=== PATIENT | male | born 1975 | race Caucasian/White ===

== ENCOUNTER 2016-05-24 12:48 | Inpatient (IN) | payer SELFPAY ==
[2016-05-24] MEDS ORDERED: predniSONE 20 MG TAB PO ONE ×2 (13:05→14:30)
--- NOTE | 2016-05-24 13:16 | EDPHY ---
HPI/HX/ROS/PE/MDM Narrative: CHIEF COMPLAINT: Sent here by PCP, Admit for HIV. HPI: The patient is a 41 year old male, sent here by his PCP with positive HIV test. According to the patient's record, [facility] went [facility] and paid for an HIV antibody test, that returned positive. His last test was in 2003 and was negative at that time. The patient was hypoxic at in clinic at 71%. The patient has been ill for 6 weeks. He has lost up to 10Ibs. Over the past few days the patient has had productive cough with light green sputum. He reports intermittent fevers as well as headaches, but denies fever or visual changes. He denies nauseas, vomiting, abdominal pain. No hematosis, hematuria, or bloody stools. The patient was sent here to be admitted to have CT chest and to start him on IV Bactrim. 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 REVIEW OF SYSTEMS: Aside from elements discussed in the HPI, a comprehensive 10-point review of systems was reviewed and is negative. PMH: I reviewed the patient's medical records from his visit with his PCP, Dr. Mcclure today. HIV positive. SOCIAL HISTORY: Former tobacco use. PHYSICAL EXAM: General: Patient is alert, in mild respiratory distress on oxymask. Mildly cachectic. ENT: Eyes are normal to inspection. ENT inspection normal. Neck: Normal inspection. Full range of motion. Respiratory: Mild respiratory distress. Bilateral crackles noted. Cardiovascular: Regular rate and rhythm. Strong peripheral pulses. Abdomen: The abdomen is nontender to palpation. There are no peritoneal signs. There are normal bowel sounds. Back: Normal to inspection. No tenderness to palpation. Skin: Normal color. No rash. Warm and dry. Extremities: Normal appearance. Full range of motion. Neuro: Oriented x3. Normal motor function. Normal sensory function. ED Course: The patient is on an oxidizer mask, O2 saturations are in the 90s. I ordered chest x-ray, CT chest, IV Bactrim, and Prednisone per Dr. Mcclure's request. 1340: Dr. Cross accepts the patient for admission. Imaging: Study: X-ray of the chest was obtained. Results: Diffuse pneumonia consistent with pneumocystis. Images were interpreted by the radiologist, Dr. Murry. I viewed the images myself on the PACS system. MDM: This patient meets guidelines for Severe Sepsis given lab abnormalities and hypoxia. His lactate is <2 and he is not hypotensive, so he does not currently have septic shock. Our guidelines technically require IV broad spectrum antibiotic empirically, however, given clinical scenario and request by ID, I have given IV Bactrim only. - Data Points Laboratory Results: Laboratory Results 05/24/16 13:29 05/24/16 13:29 05/24/16 05/24/16 05/24/16 13: 13: 13:29 WBC 8.98 10^3/uL 10^3/uL (3.80-9.50) RBC 4.32 10^6/uL L 10^6/uL (4.40-6.38) Hgb 13.0 g/dL L g/dL (13.7-17.5) Hct 37.7 % L % (40.0-51.0) MCV 87.3 fL fL (81.5-99.8) MCH 30.1 pg pg (27.9-34.1) MCHC 34.5 g/dL g/dL (32.4-36.7) RDW 12.8 % % (11.5-15.2) Plt Count 571 10^3/uL H 10^3/uL (150-400) MPV 8.6 fL L fL (8.7-11.7) Neut % (Auto) 86.6 % H % (39.3-74.2) Lymph % (Auto) 8.1 % L % (15.0-45.0) [place] % (Auto) 4.0 % L % (4.5-13.0) Eos % (Auto) 0.1 % L % (0.6-7.6) Baso % (Auto) 0.2 % L % (0.3-1.7) Nucleat RBC Rel Count 0.2 % % (0.0-0.2) Absolute Neuts (auto) 7.77 10^3/uL H 10^3/uL (1.70-6.50) Absolute Lymphs (auto) 0.73 10^3/uL L 10^3/uL (1.00-3.00) Absolute Monos (auto) 0.36 10^3/uL 10^3/uL (0.30-0.80) Absolute Eos (auto) 0.01 10^3/uL L 10^3/uL (0.03-0.40) Absolute Basos (auto) 0.02 10^3/uL 10^3/uL (0.02-0.10) Absolute Nucleated RBC 0.02 10^3/uL H 10^3/uL (0-0.01) Immature Gran % 1.0 % % (0.0-1.1) Immature Gran # 0.09 10^3/uL 10^3/uL (0.00-0.10) VBG Lactic Acid 1.6 mmol/L mmol/L (0.7-2.1) Sodium 127 mEq/L L mEq/L (134-144) Potassium 4.7 mEq/L mEq/L (3.5-5.2) Chloride 95 mEq/L L mEq/L (97-110) Carbon Dioxide 24 mEq/l mEq/l (22-31) Anion Gap 8 mEq/L mEq/L (8-16) BUN 13 mg/dL mg/dL (7-23) Creatinine 0.9 mg/dL mg/dL (0.7-1.3) Estimated GFR > 60 Glucose 146 mg/dL H mg/dL (70-100) Calcium 8.2 mg/dL L mg/dL (8.5-10.4) Troponin I < 0.012 ng/mL ng/mL (0-0.034) NT-Pro-B Natriuret Pep 224 pg/mL H pg/mL (0-125) Medications Given: Discontinued Medications Prednisone (Prednisone) 20 mg PO EDNOW ONE Stop: 05/24/16 13:06 Last Admin: 05/24/16 13:25 Dose: 20 mg Prednisone (Prednisone) 20 mg PO ONCE ONE Stop: 05/24/16 14:31 Last Admin: 05/24/16 14:28 Dose: 20 mg General Time Seen by Provider: 05/24/16 12:57 Initial Vital Signs: Initial Vital Signs Temperature (C) 36.7 C 05/24/16 12:54 Heart Rate 116 H 05/24/16 12:54 Respiratory Rate 26 H 05/24/16 12:54 Blood Pressure 103/64 05/24/16 12:54 O2 Sat (%) 90 L 05/24/16 12:54 O2 Delivery Mode Nasal Cannula O2 (L/minute) 5 Allergies/Adverse Reactions: Penicillins Allergy (Verified 05/24/16 12:53) Home Medications: Medication Instructions Recorded Herbals/Supplements -Info Only 1 ea PO DAILY 05/24/16 Ibuprofen [Motrin (*)] 200 mg PO DAILY PRN 05/24/16 Multivitamins [Multivitamin (*)] 1 each PO DAILY 05/24/16 Pseudoephedrine HCl [Sudafed] 30 mg PO BID PRN 05/24/16 Departure - Departure Disposition: [facility] In[facility] Acute Clinical Impression: HIV (human immunodeficiency virus infection), Hypoxia Condition: Fair Report Scribed for: Jacob Terry Report Scribed by: Luly Deshpande Date of Report: 05/24/16 Time of Report: 13:16
[2016-05-24 13:38] LABS: ABSOLUTE IMMATURE GRANULOCYTES 0.09 10^3/uL (0.00-0.10); ABSOLUTE NRBC COUNT 0.02 10^3/uL (0-0.01); ADD DIFF? NO; ADD MORPH? NO; ADD SCAN? NO; ATYPICAL LYMPHOCYTE FLAG 10 (0-99); FRAGMENT RBC FLAG 0 (0-99); HEMATOCRIT 37.7 % (40.0-51.0); LEFT SHIFT FLG 0 (0-99); LIPEMIA HEMOLYSIS FLAG 90 (0-99); MEAN CELL HEMOGLOBIN 30.1 pg (27.9-34.1); MEAN CELL HEMOGLOBIN CONCENTR. 34.5 g/dL (32.4-36.7); MEAN CELL VOLUME 87.3 fL (81.5-99.8); MEAN PLATELET VOLUME 8.6 fL (8.7-11.7); NRBC-AUTO% 0.2 % (0.0-0.2); PLATELET CLUMPS FLAG 0 (0-99); PLATELET COUNT 571 10^3/uL (150-400); RED BLOOD CELL COUNT 4.32 10^6/uL (4.40-6.38); RED CELL DISTRIBUTION WIDTH 12.8 % (11.5-15.2)
[2016-05-24 13:55] LABS: ANION GAP 8 mEq/L (8-16); CALCIUM 8.2 mg/dL (8.5-10.4); CARBON DIOXIDE 24 mEq/l (22-31); CHLORIDE 95 mEq/L (97-110); CREATININE 0.9 mg/dL (0.7-1.3); GLOMERULAR FILTRATION RATE > 60; GLUCOSE 146 mg/dL (70-100); POTASSIUM 4.7 mEq/L (3.5-5.2); SODIUM 127 mEq/L (134-144)
--- NOTE | 2016-05-24 14:03 | PCMIDPN ---
Assessment/Plan: 1. Probable Pneumocystis pneumonia in patient with new diagnosis of HIV/AIDS: Continue IV Bactrim and Prednisone, but needs 40mg daily for now, and then tapering moving forward. Chest CT pending. Will order induced sputum for PCP stain. Multiple other tests/serologies pending. Other pathogens seem less likely, such as Penicillium marneffei (patient has no skin lesions), Histoplasmosis, TB, but await further evaluation. 2. HIV/aids: T-cell count viral load and multiple other serologic tests and workup for sexually transmitted infections pending. We were out of regular blood culture bottles and AFB but blood culture bottles--it appears that these were done in the emergency department. 3. Miscellaneous: Patient is extremely concerned about finances. Will order social work consult. 05/24/16 14:04 Subjective: Please see my extensive note in [place]. Patient presented to see me today in clinic as a new patient with recent diagnosis of HIV disease. Patient was profoundly hypoxic and referred to the emergency room for evaluation and hospital admission for probable Pneumocystis pneumonia. Objective: Vital Signs Temp Pulse Resp BP Pulse Ox 36.7 C 116 H 26 H 103/64 94 05/24/16 12:54 05/24/16 12:54 05/24/16 12:54 05/24/16 12:54 05/24/16 13:22 ICD10 Worksheet Patient Problems: Problems Problem Status Onset HIV (human immunodeficiency virus infection) Acute Hypoxia Acute
[2016-05-24] MEDS ORDERED: IOPAMIDOL (ISOVUE-300) 100 ML BTL IV ONE (14:06)
[2016-05-24 14:07] LABS: TROPONIN I < 0.012 ng/mL (0-0.034)
[2016-05-24] MEDS: SULFAMETHOX IV SCH ×3 (14:28→23:55)
[2016-05-24] MEDS: D5W IV SCH ×3 (14:28→23:55)
[2016-05-24] MEDS: TMP IV SCH ×3 (14:28→23:55)
[2016-05-24] MEDS ORDERED: ONDANSETRON DISINTEGRATING 4 MG TAB PO PRN (14:34)
[2016-05-24] MEDS ORDERED: ONDANSETRON 4 MG/2 ML VIAL IVP PRN (14:34)
[2016-05-24] MEDS ORDERED: ACETAMINOPHEN 325 MG TAB PO PRN (14:34)
[2016-05-24] MEDS ORDERED: NS 1,000 ML IV SCH (14:45)
--- NOTE | 2016-05-24 15:40 | PDGENHP ---
History and Physical - Chief Complaint Acute shortness of breath - History of Present Illness Primary infectious Disease: Dr. Mcclure HPI: 41-year-old male presenting with acute shortness of breath characterized as difficulty breathing, exacerbated by ambulation, with associated productive cough of green sputum as well as subjective fevers and headaches. Patient reports that his symptoms began approximately 10 days ago and duration has been persistent and progressively worsening thereafter. Does report general malaise beginning approximately 6 weeks ago with a 10 lb weight loss over that time. He reports that her shortness of breath was alleviated by receiving supplemental oxygen at the [facility]. His SpO2 at that time was 71% on room air, improved with 4 L supplemental nasal cannula oxygen. Prior to his onset of symptoms, the patient reports he had otherwise been feeling well. Of note, the patient recently had a positive HIV test and was referred to [facility] from the [facility]. Prior to that, he had not been seeing any medical providers. History Information - Allergies/Home Medication List Allergies/Adverse Reactions: Penicillins Allergy (Verified 05/24/16 12:53) Home Medications: Herbals/Supplements -Info Only 1 ea PO DAILY 05/24/16 [Last Taken Unknown] Ibuprofen [Motrin (*)] 200 mg PO DAILY PRN 05/24/16 [Last Taken 05/24/16] Multivitamins [Multivitamin (*)] 1 each PO DAILY 05/24/16 [Last Taken Unknown] Pseudoephedrine HCl [Sudafed] 30 mg PO BID PRN 05/24/16 [Last Taken 05/24/16] I have personally reviewed and updated: family history, medical history, social history, surgical history - Past Medical History no pertinent PMH - Surgical History Additional surgical history: Nose reconstruction - Family History Additional family history: Brother with scleroderma - Social History Smoking Status: Former smoker (Patient quit smoking 2 months ago) Alcohol Use: Occasionally (Does not drink daily) Drug Use: Other (Has a history of recreational drug use, denies IV drug use) Additional social history: Patient previously lived in [facility], 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, currently resides in [place] and commutes to [place] for work Review of Systems ROS: 10pt was reviewed & negative except for what was stated in HPI & below Constitutional: Reports: malaise, weight loss Respiratory: Reports: cough, shortness of breath Physical Exam Temp Pulse Resp BP Pulse Ox 36.7 C 96 18 102/59 L 95 05/24/16 12:54 05/24/16 14:00 05/24/16 14:00 05/24/16 14:00 05/24/16 14:00 O2 (L/minute) 5 Constitutional: no apparent distress, not in pain, other (Thin appear), No uncomfortable Eyes: PERRL, anicteric sclera, EOMI Ears, Nose, Mouth, Throat: moist mucous membranes, hearing normal, ears appear normal, no oral mucosal ulcers Cardiovascular: regular rate and rhythym, no murmur, rub, or gallop, No edema Respiratory: respiratory distress (With exertion and repositioning), rhonchi ( Diffusely throughout on inspiration), No reduced air movement, No expiratory wheeze, No bronchial breath sounds Gastrointestinal: normoactive bowel sounds, soft, non-tender abdomen, no palpable masses Skin: warm, normal color, no rashes or abrasions, no fluctuance, no induration, No mottled Neurologic: AAOx3, sensation intact bilaterally, No weakness Psychiatric: interacting appropriately, not anxious, not encephalopathic, thought process linear Lymph, Heme, Immunologic: no cervical LAD, no supraclavicular LAD Lab Data & Imaging Review 05/24/16 13:29 05/24/16 13:29 WBC 8.98 10^3/uL (3.80-9.50) 05/24/16 13:29 RBC 4.32 10^6/uL (4.40-6.38) L 05/24/16 13:29 Hgb 13.0 g/dL (13.7-17.5) L 05/24/16 13:29 Hct 37.7 % (40.0-51.0) L 05/24/16 13:29 MCV 87.3 fL (81.5-99.8) 05/24/16 13:29 MCH 30.1 pg (27.9-34.1) 05/24/16 13:29 MCHC 34.5 g/dL (32.4-36.7) 05/24/16 13:29 RDW 12.8 % (11.5-15.2) 05/24/16 13:29 Plt Count 571 10^3/uL (150-400) H 05/24/16 13:29 MPV 8.6 fL (8.7-11.7) L 05/24/16 13:29 Neut % (Auto) 86.6 % (39.3-74.2) H 05/24/16 13:29 Lymph % (Auto) 8.1 % (15.0-45.0) L 05/24/16 13:29 [place] % (Auto) 4.0 % (4.5-13.0) L 05/24/16 13:29 Eos % (Auto) 0.1 % (0.6-7.6) L 05/24/16 13:29 Baso % (Auto) 0.2 % (0.3-1.7) L 05/24/16 13:29 Nucleat RBC Rel Count 0.2 % (0.0-0.2) 05/24/16 13:29 Absolute Neuts (auto) 7.77 10^3/uL (1.70-6.50) H 05/24/16 13:29 Absolute Lymphs (auto) 0.73 10^3/uL (1.00-3.00) L 05/24/16 13:29 Absolute Monos (auto) 0.36 10^3/uL (0.30-0.80) 05/24/16 13:29 Absolute Eos (auto) 0.01 10^3/uL (0.03-0.40) L 05/24/16 13:29 Absolute Basos (auto) 0.02 10^3/uL (0.02-0.10) 05/24/16 13:29 Absolute Nucleated RBC 0.02 10^3/uL (0-0.01) H 05/24/16 13:29 Immature Gran % 1.0 % (0.0-1.1) 05/24/16 13: Immature Gran # 0.09 10^3/uL (0.00-0.10) 05/24/16 13:29 VBG Lactic Acid 1.6 mmol/L (0.7-2.1) 05/24/16 13:29 Sodium 127 mEq/L (134-144) L 05/24/16 13:29 Potassium 4.7 mEq/L (3.5-5.2) 05/24/16 13:29 Chloride 95 mEq/L (97-110) L 05/24/16 13:29 Carbon Dioxide 24 mEq/l (22-31) 05/24/16 13:29 Anion Gap 8 mEq/L (8-16) 05/24/16 13:29 BUN 13 mg/dL (7-23) 05/24/16 13:29 Creatinine 0.9 mg/dL (0.7-1.3) 05/24/16 13:29 Estimated GFR > 60 05/24/16 13:29 Glucose 146 mg/dL (70-100) H 05/24/16 13:29 Calcium 8.2 mg/dL (8.5-10.4) L 05/24/16 13:29 Troponin I < 0.012 ng/mL (0-0.034) 05/24/16 13:29 NT-Pro-B Natriuret Pep 224 pg/mL (0-125) H 05/24/16 13:29 Visualized and Interpreted Chest x-ray results: Yes Chest X-Ray results: other (Diffuse bilateral infiltrates) Assessment & Plan Assessment: 41-year-old male presents with acute, suspected PJP pneumonia in the setting of new diagnosis HIV, complicated by acute hypoxic respiratory failure Plan: 1. Acute hypoxic respiratory failure. Acute, new problem this provider, further workup indicated. Evidenced by SpO2 of 71% on room air with symptomatic shortness of breath, tachypnea, respiratory distress when not on supplemental oxygen. Secondary to suspected PJP pneumonia -getting chest CT -hold on ABG unless worsening -continue on high-flow supplemental oxygen, monitor in step-down unit 2. Suspected PJP pneumonia. Evidenced by diffuse bilateral infiltrates in the setting of new diagnosis HIV, possibly AIDS -blood cultures, sputum cultures, AFB -reviewed outside records including Clinic note by Dr. Mcclure from 05/24/2016, indicating IV Bactrim and IV methylprednisolone, transition to prednisone 40 mg 3. New diagnosis HIV. All relevant labs have been sent through the [facility], infectious Disease consultation appreciated 4. Hyponatremia. Suspect hypovolemic, provide IV normal saline and monitor Diet. Regular Prophylaxis. High risk patient, Lovenox 40 Code. Full Disposition. Anticipated discharge uncertain this time, anticipated length stay is greater than 48 hours warranting inpatient admission status for acute hypoxic respiratory failure in the setting of suspected PJP pneumonia, requiring high rate IV fluids, high rate supplemental oxygen, further workup and treatment as outlined above.
[2016-05-24] MEDS ORDERED: PSEUDOEPHEDRINE HCL 30 MG TAB PO PRN (15:45)
[2016-05-24] MEDS ORDERED: IBUPROFEN 200 MG TAB PO PRN (15:45)
[2016-05-24] MEDS: IPRATROPIUM/ALBUTEROL 3 ML DEYVIAL IH SCH ×2 (16:28→20:33)
[2016-05-24] MEDS: CLOTRIMAZOLE 10 MG TROCHE PO SCH (21:41)
[2016-05-25 05:14] LABS: % IMMATURE GRANULYOCYTES 0.9 % (0.0-1.1); ABSOLUTE IMMATURE GRANULOCYTES 0.04 10^3/uL (0.00-0.10); ADD DIFF? NO; ADD MORPH? NO; ADD SCAN? NO; ATYPICAL LYMPHOCYTE FLAG 50 (0-99); FRAGMENT RBC FLAG 0 (0-99); HEMATOCRIT 35.4 % (40.0-51.0); LEFT SHIFT FLG 0 (0-99); LIPEMIA HEMOLYSIS FLAG 90 (0-99); MEAN CELL HEMOGLOBIN 30.4 pg (27.9-34.1); MEAN CELL HEMOGLOBIN CONCENTR. 33.9 g/dL (32.4-36.7); MEAN CELL VOLUME 89.6 fL (81.5-99.8); MEAN PLATELET VOLUME 8.8 fL (8.7-11.7); PLATELET CLUMPS FLAG 0 (0-99); PLATELET COUNT 472 10^3/uL (150-400); RED BLOOD CELL COUNT 3.95 10^6/uL (4.40-6.38); RED CELL DISTRIBUTION WIDTH 12.9 % (11.5-15.2)
[2016-05-25 05:35] LABS: ALANINE AMINOTRANSFERASE 36 IU/L (21-72); ALBUMIN 2.3 g/dL (3.5-5.0); ALKALINE PHOSPHATASE 63 IU/L (38-126); ANION GAP 7 mEq/L (8-16); ASPARTATE AMINOTRANSFERASE 50 IU/L (17-59); BILIRUBIN,TOTAL 0.5 mg/dL (0.1-1.4); CALCIUM 7.8 mg/dL (8.5-10.4); CARBON DIOXIDE 24 mEq/l (22-31); CHLORIDE 103 mEq/L (97-110); CREATININE 0.8 mg/dL (0.7-1.3); GLOMERULAR FILTRATION RATE > 60; GLUCOSE 115 mg/dL (70-100); POTASSIUM 5.5 mEq/L (3.5-5.2); SODIUM 134 mEq/L (134-144); TOTAL PROTEIN 5.8 g/dL (6.3-8.2)
[2016-05-25] MEDS: IPRATROPIUM/ALBUTEROL 3 ML DEYVIAL IH SCH ×3 (05:57→17:23)
[2016-05-25] MEDS: TMP IV SCH ×4 (06:22→23:58)
[2016-05-25] MEDS: SULFAMETHOX IV SCH ×4 (06:22→23:58)
[2016-05-25] MEDS: D5W IV SCH ×4 (06:22→23:58)
[2016-05-25] MEDS: MULTIVITAMINS 1 EACH TAB PO SCH (08:10)
[2016-05-25] MEDS: CLOTRIMAZOLE 10 MG TROCHE PO SCH ×5 (08:10→20:41)
[2016-05-25] MEDS: ENOXAPARIN 40 MG/0.4 ML SYR SC SCH (08:25)
[2016-05-25] MEDS ORDERED: Herbals/Supplements -Info Only PO SCH (09:00)
[2016-05-25] MEDS ORDERED: predniSONE 20 MG TAB PO SCH (09:00)
--- NOTE | 2016-05-25 09:17 | PCMIDPN ---
Assessment/Plan: # Probable Pneumocystis pneumonia in patient with new diagnosis of HIV/AIDS. Requiring 7L O2, RR 30s, slight increases are probably within realm of expectation with initiation of treatment of PJP. --Continue IV Bactrim and Prednisone 40mg daily for now, and then tapering steroids moving forward. Chest CT showed expected findings and was personally reviewed by me. No PE. PJP stain pending --alternate dx studies pending: Histoplasmosis urine An, T-spot, cocci, crypto, CMV. If does not improve, may need to consider bronch at some point (but did not discuss this yet since he is already overwhelmed) --coordination of care with Dr. Becerra # HIV/AIDS, reassurance provided today that HIV is controllable. Multiple studies pending: T-cell count, VL, AFB blood cx , STD testing, Toxo titer # Miscellaneous Patient is extremely concerned about finances. Social work consult. Patient experiencing depressed response to new dx, within an expected degree. Denies SI. Meds Bactrim 300mg IV q6h #1 Pred 40mg micro Influenza PCR neg 05/24 blood (2) pending 05/24 AFB blood cx pending Subjective: Feels slightly better than yesterday. Feels very sad about new dx. Living w roommate and feels he needs to move out and wants to move close to [place] area since he works here. Discussed length of stay may be as long as 1 week, but could be shorter Objective: Vital Signs Temp Pulse Resp BP Pulse Ox 36.4 C 95 20 89/49 L 96 05/25/16 07:56 05/25/16 07:56 05/25/16 07:56 05/25/16 07:56 05/25/16 07:56 Laboratory Results 05/25/16 05:00 05/25/16 05:00 05/24/16 05/25/16 05/26/16 05:59 05:59 05:59 Intake Total 2040 Balance 2040 - Physical Exam General Appearance: alert, no apparent distress, thin EENT: No thrush Respiratory: lungs clear, accessory muscle use Neck: supple Cardiac/Chest: regular rate, rhythm Extremities: No pedal edema Abdomen: non-tender, soft Skin: No rash Neuro/Psych: alert, oriented x 3, depressed affect ICD10 Worksheet Patient Problems: Problems Problem Status Onset HIV (human immunodeficiency virus infection) Acute Hypoxia Acute
--- NOTE | 2016-05-25 12:31 | GCON ---
[f rep st] CONSULTATION IT BUSINESS ANALYST CONSULTATION REASON FOR ADMISSION: Pneumonia, respiratory failure. HISTORY OF PRESENT ILLNESS: The patient is a pleasant 41-year-old white male with a past medical hi story of HIV positive. He presented to the emergency room with complaints of increasing breathlessn ess, worsened with any form of exertion. He admits to a cough, productive of green sputum, but nghia es any hemoptysis. There is no chest pain, pleuritic-type chest pain, or anginal equivalent. He ruvalcaba s had significant weight loss. He was markedly hypoxemic upon presentation on room air. He was adm itted to the step-down unit, is feeling markedly improved on supplemental oxygen. PAST MEDICAL HISTORY: Again, significant for HIV positive. ALLERGIES: Penicillin. SOCIAL HISTORY: Previous smoker, none for over 2 months. No significant alcohol use. MEDICATIONS: At home include herbal supplements, ibuprofen, multivitamins, and pseudoephedrine. PHYSICAL EXAMINATION: VITAL SIGNS: Blood pressure 118/71, pulse 101. Respirations are 35. Temper ature is 36.9, oxygen saturation 94% on 10 L. GENERAL: He is a thin, somewhat cachectic 41-year-ol d white male who is resting comfortably on supplemental oxygen. HEENT: Eyes are BONY, EOMI. Thro at exam is deferred. NECK: Supple. There is no cervical adenopathy. HEART: Regular rate and rhy thm without murmurs, rubs, or gallops. LUNGS: Diminished breath sounds. A few bibasilar crackles but no wheeze. ABDOMEN: Soft, nontender. Bowel sounds are present in all 4 quadrants. EXTREMITIE S: No clubbing, cyanosis, or edema. LABORATORIES: White count is 4.2, hemoglobin 12, hematocrit 35, platelet count 472. Sodium 134, po tassium 5.5, chloride 103, CO2 24, BUN 13, creatinine 0.8. Glucose is 115. Influenza A and B are n egative. Pneumocystis carinii smear is currently pending. IMPRESSION: 1. Human immunodeficiency virus positive. 2. Diffuse pneumonia, etiology of which is unclear, though Pneumocystis carinii pneumonia appears t o be most likely. RECOMMENDATIONS: 1. Agree with current antibiotic coverage. 2. Agree with current steroids. 3. Supplemental oxygen. Wean as tolerated. 4. DVT and PE prophylaxis. 5. Stress ulcer prophylaxis. 6. Early and frequent ambulation. /[id number]/MODL
--- NOTE | 2016-05-25 14:36 | HOSPPROG ---
Hospitalist Progress Note Assessment/Plan: * HIV/AIDS * per ID * probable PCP pneumonia * on Bactrim and prednisone * acute hypoxic respiratory failure * continue to monitor * mild hyperkalemia * will watch patient is high risk due to high oxygen requirements Subjective: No new complaints. Breathing is okay Objective: Vital Signs Temp Pulse Resp BP Pulse Ox 36.9 C 101 H 35 H 118/71 94 05/25/16 11:35 05/25/16 11:35 05/25/16 11:35 05/25/16 11:35 05/25/16 11:35 Microbiology 05/24/16 18:05 Mycobacterial Smear (DWIGHT) - Final Blood 05/24/16 23:30 - Final Sputum, Expectorated Sputum Culture - Final Laboratory Results 05/25/16 05:00 05/25/16 05:00 05/24/16 05/25/16 05/26/16 05:59 05:59 05:59 Intake Total [address] scan personally viewed and interpreted - Physical Exam Constitutional: no apparent distress, appears nourished, not in pain Eyes: anicteric sclera, EOMI Ears, Nose, Mouth, Throat: moist mucous membranes, hearing normal, ears appear normal Cardiovascular: regular rate and rhythym, no murmur, rub, or gallop, No edema Respiratory: no respiratory distress, no rales or rhonchi, clear to auscultation Gastrointestinal: normoactive bowel sounds, soft, non-tender abdomen, no palpable masses Skin: warm Neurologic: AAOx3 Psychiatric: interacting appropriately, not anxious, not encephalopathic, thought process linear ICD10 Worksheet Patient Problems: Problems Problem Status Onset HIV (human immunodeficiency virus infection) Acute Hypoxia Acute
[2016-05-25] MEDS ORDERED: SODIUM CL FOR INH 10% 15 ML VIAL.NEB IH ONE (16:30)
[2016-05-25] MEDS: predniSONE 20 MG TAB PO SCH ×2 (17:57→20:40)
[2016-05-26] MEDS: D5W IV SCH ×4 (05:08→23:41)
[2016-05-26] MEDS: TMP IV SCH ×4 (05:08→23:41)
[2016-05-26] MEDS: SULFAMETHOX IV SCH ×4 (05:08→23:41)
[2016-05-26 05:36] LABS: % IMMATURE GRANULYOCYTES 0.7 % (0.0-1.1); ABSOLUTE IMMATURE GRANULOCYTES 0.06 10^3/uL (0.00-0.10); ADD DIFF? NO; ADD MORPH? NO; ADD SCAN? NO; ATYPICAL LYMPHOCYTE FLAG 10 (0-99); FRAGMENT RBC FLAG 0 (0-99); HEMATOCRIT 35.9 % (40.0-51.0); HEMOGLOBIN 11.9 g/dL (13.7-17.5); LEFT SHIFT FLG 0 (0-99); LIPEMIA HEMOLYSIS FLAG 80 (0-99); MEAN CELL HEMOGLOBIN 30.4 pg (27.9-34.1); MEAN CELL HEMOGLOBIN CONCENTR. 33.1 g/dL (32.4-36.7); MEAN CELL VOLUME 91.6 fL (81.5-99.8); MEAN PLATELET VOLUME 8.8 fL (8.7-11.7); PLATELET CLUMPS FLAG 20 (0-99); PLATELET COUNT 560 10^3/uL (150-400); RED BLOOD CELL COUNT 3.92 10^6/uL (4.40-6.38); RED CELL DISTRIBUTION WIDTH 13.2 % (11.5-15.2)
[2016-05-26 05:46] LABS: ALANINE AMINOTRANSFERASE 102 IU/L (21-72); ALBUMIN 2.3 g/dL (3.5-5.0); ALKALINE PHOSPHATASE 57 IU/L (38-126); ANION GAP 8 mEq/L (8-16); ASPARTATE AMINOTRANSFERASE 121 IU/L (17-59); BILIRUBIN,TOTAL 0.3 mg/dL (0.1-1.4); CALCIUM 8.1 mg/dL (8.5-10.4); CARBON DIOXIDE 23 mEq/l (22-31); CHLORIDE 102 mEq/L (97-110); CREATININE 0.9 mg/dL (0.7-1.3); GLOMERULAR FILTRATION RATE > 60; GLUCOSE 122 mg/dL (70-100); POTASSIUM 5.4 mEq/L (3.5-5.2); SODIUM 133 mEq/L (134-144)
[2016-05-26] MEDS: CLOTRIMAZOLE 10 MG TROCHE PO SCH ×5 (06:43→22:04)
--- NOTE | 2016-05-26 09:24 | PDINTPN ---
Domain Architect Progress Note Assessment/Plan: Assessment/Plan: * HIV positive * Diffuse pna-PCP neg X 2 -bronch today * Resp failure-stable on supplemental O2 * Anxiety Subjective: Resting comfortably Objective: Vital Signs Temp Pulse Resp BP Pulse Ox 36.6 C 83 24 H 104/66 97 05/26/16 04:00 05/26/16 04:00 05/26/16 04:00 05/26/16 04:00 05/26/16 04:00 Microbiology 05/24/16 18:05 Mycobacterial Smear (DWIGHT) - Final Blood 05/24/16 23:30 - Final Sputum, Expectorated Sputum Culture - Final Laboratory Results 05/26/16 05:20 05/26/16 05:20 05/25/16 05/26/16 05/27/16 05:59 05:59 05:59 Intake Total 20407 Balance 2040 3287 Physical Exam - Physical Exam General Appearance: WD/WN, alert, no apparent distress EENT: PERRL/EOMI, normal ENT inspection Neck: non-tender, full range of motion, supple, normal inspection Respiratory: crackles (few), No wheezing Cardiac/Chest: normal peripheral pulses, regular rate, rhythm Peripheral Pulses: 2+: carotid (R), carotid (L), femoral (R), femoral (L), dorsalis-pedis (R), dorsalis-pedis (L) Abdomen: normal bowel sounds, non-tender, soft Male Genitalia: deferred Rectal: deferred Skin: normal color, warm/dry Neuro/Psych: no motor/sensory deficits, alert, normal mood/affect, oriented x 3 ICD10 Worksheet Patient Problems: Problems Problem Status Onset HIV (human immunodeficiency virus infection) Acute Hypoxia Acute
--- NOTE | 2016-05-26 09:48 | PCMIDPN ---
Assessment/Plan: 1. Probable Pneumocystis pneumonia in patient with profound immunosuppression from AIDS: Hopefully, the induced sputum from yesterday afternoon will give us a diagnosis. If not, the patient understands that he will need a bronchoscopy. Continue intravenous Bactrim, but will back down to 15 mg of trimethoprim (he is on 20) given newly elevated liver function tests. Hopefully will not have to change this medication. Continue prednisone 40 mg p.o. twice daily. Continue intravenous levofloxacin pending further evaluation and diagnostic workup. 2. HIV/aids: T-cell count is 21. I gave the patient this information this morning. He is still profoundly depressed about his diagnosis. 3. Oral candidiasis: Continue clotrimazole troches. No symptoms to suggest esophageal disease. 4. Transaminitis: Almost certainly secondary to Bactrim. Back down to 15 mg of trimethoprim as per the above. Will follow. 5. Hyperkalemia: Secondary to anti- aldosterone effect of Bactrim. Subjective: Unfortunately, the patient's sputum specimen from 2 days ago was a poor specimen with multiple squamous cells and Andreia hyphae. Pneumocystis stain was negative. A 2nd induced sputum was performed yesterday afternoon. I called pathology and the result is still pending. It should be back within a few hours. Patient states he feels slightly better. He denies significant cough. He still is short of breath. No nausea vomiting or diarrhea or rash. He denies floaters or confusion. No headache. Objective: Prednisone 40 mg p.o. twice daily day 2 Levofloxacin 750 mg IV daily day 2 Bactrim 300 mg IV q.6 hours day 2 Afebrile 96% on 6 L by OxyMask Vital Signs Temp Pulse Resp BP Pulse Ox 36.6 C 83 24 H 104/66 97 05/26/16 04:00 05/26/16 04:00 05/26/16 04:00 05/26/16 04:00 05/26/16 04:00 Microbiology 05/24/16 18:05 Mycobacterial Smear (DWIGHT) - Final Blood 05/24/16 23:30 - Final Sputum, Expectorated Sputum Culture - Final Laboratory Results 05/26/16 05:20 05/26/16 05:20 05/25/16 05/26/16 05/27/16 05:59 05:59 05:59 Intake Total 2041 3287 Balance 2041 3287 T-cell count 21 (3%) viral load pending Serum cryptococcal antigen negative CMV PCR negative Toxoplasmosis serology negative Histoplasma urine antigen pending Blood culture for AFB and regular blood cultures are pending Influenza PCR negative Hepatitis serologes negative - Physical Exam General Appearance: cachetic, other (Breathing rapidly, although looks better than 2 days ago when I saw him last.) EENT: thrush Respiratory: lungs clear Cardiac/Chest: No tachycardia Abdomen: non-tender, soft Skin: No rash ICD10 Worksheet Patient Problems: Problems Problem Status Onset HIV (human immunodeficiency virus infection) Acute Hypoxia Acute
[2016-05-26] MEDS: MULTIVITAMINS 1 EACH TAB PO SCH (11:48)
[2016-05-26] MEDS: ENOXAPARIN 40 MG/0.4 ML SYR SC SCH (11:54)
[2016-05-26] MEDS: predniSONE 20 MG TAB PO SCH ×2 (11:54→20:03)
--- NOTE | 2016-05-26 14:22 | HOSPPROG ---
Hospitalist Progress Note Assessment/Plan: * HIV/AIDS * per ID * PCP pneumonia * on Bactrim and prednisone * acute hypoxic respiratory failure * continue to monitor * mild hyperkalemia * will watch * due to Bactrim * elevated liver function tests * probably related to Bactrim * thrush patient is high risk due to high oxygen requirements Subjective: Feeling little better Objective: Vital Signs Temp Pulse Resp BP Pulse Ox 36.6 C 86 21 H 100/70 96 05/26/16 04:00 05/26/16 12:00 05/26/16 12:00 05/26/16 12:00 05/26/16 12:00 Microbiology 05/24/16 18:05 Mycobacterial Smear (DWIGHT) - Final Blood 05/24/16 23:30 - Final Sputum, Expectorated Sputum Culture - Final Laboratory Results 05/26/16 05:20 05/26/16 05:20 05/25/16 05/26/16 05/27/16 05:59 05:59 05:59 Intake Total 20407 Balance 2040 3287 - Physical Exam Constitutional: no apparent distress, appears nourished, not in pain Eyes: anicteric sclera, EOMI Ears, Nose, Mouth, Throat: moist mucous membranes, hearing normal, ears appear normal Cardiovascular: regular rate and rhythym, no murmur, rub, or gallop Respiratory: no respiratory distress, no rales or rhonchi, clear to auscultation Gastrointestinal: normoactive bowel sounds, soft, non-tender abdomen, no palpable masses Skin: warm Neurologic: AAOx3 Psychiatric: interacting appropriately, not anxious, not encephalopathic, thought process linear ICD10 Worksheet Patient Problems: Problems Problem Status Onset HIV (human immunodeficiency virus infection) Acute Hypoxia Acute
[2016-05-26] MEDS ORDERED: BISACODYL 10 MG SUPP PR PRN (20:16)
[2016-05-26] MEDS ORDERED: MAGNESIUM HYDROXIDE 30 ML UDCUP PO PRN (20:16)
[2016-05-26] MEDS ORDERED: LACTULOSE 20 GM/30 ML UDCUP PO PRN (20:16)
[2016-05-26] MEDS ORDERED: POLYETHYLENE GLYCOL 3350 17 GM PKT PO PRN (20:16)
[2016-05-26] MEDS: SENNOSIDES/DOCUSATE SODIUM TAB PO SCH (20:44)
[2016-05-27] MEDS: CLOTRIMAZOLE 10 MG TROCHE PO SCH ×5 (05:24→21:36)
[2016-05-27] MEDS: D5W IV SCH ×3 (05:29→18:29)
[2016-05-27] MEDS: TMP IV SCH ×3 (05:29→18:29)
[2016-05-27] MEDS: SULFAMETHOX IV SCH ×3 (05:29→18:29)
[2016-05-27 06:03] LABS: ALANINE AMINOTRANSFERASE 94 IU/L (21-72); ALBUMIN 2.5 g/dL (3.5-5.0); ALKALINE PHOSPHATASE 68 IU/L (38-126); ANION GAP 11 mEq/L (8-16); ASPARTATE AMINOTRANSFERASE 69 IU/L (17-59); BILIRUBIN,TOTAL 0.4 mg/dL (0.1-1.4); CALCIUM 8.6 mg/dL (8.5-10.4); CARBON DIOXIDE 23 mEq/l (22-31); CHLORIDE 100 mEq/L (97-110); CREATININE 0.9 mg/dL (0.7-1.3); GLOMERULAR FILTRATION RATE > 60; GLUCOSE 121 mg/dL (70-100); POTASSIUM 5.9 mEq/L (3.5-5.2); SODIUM 134 mEq/L (134-144); TOTAL PROTEIN 6.4 g/dL (6.3-8.2)
[2016-05-27 06:10] LABS: % IMMATURE GRANULYOCYTES 0.7 % (0.0-1.1); ABSOLUTE IMMATURE GRANULOCYTES 0.08 10^3/uL (0.00-0.10); ADD DIFF? NO; ADD MORPH? NO; ADD SCAN? NO; ATYPICAL LYMPHOCYTE FLAG 10 (0-99); FRAGMENT RBC FLAG 0 (0-99); HEMOGLOBIN 13.3 g/dL (13.7-17.5); LEFT SHIFT FLG 0 (0-99); LIPEMIA HEMOLYSIS FLAG 80 (0-99); MEAN CELL HEMOGLOBIN 30.5 pg (27.9-34.1); MEAN CELL HEMOGLOBIN CONCENTR. 33.3 g/dL (32.4-36.7); MEAN CELL VOLUME 91.7 fL (81.5-99.8); MEAN PLATELET VOLUME 8.9 fL (8.7-11.7); PLATELET CLUMPS FLAG 10 (0-99); PLATELET COUNT 621 10^3/uL (150-400); RED BLOOD CELL COUNT 4.36 10^6/uL (4.40-6.38); RED CELL DISTRIBUTION WIDTH 13.3 % (11.5-15.2)
[2016-05-27] MEDS: SENNOSIDES/DOCUSATE SODIUM TAB PO SCH ×2 (08:34→20:50)
[2016-05-27] MEDS: MULTIVITAMINS 1 EACH TAB PO SCH (08:35)
[2016-05-27] MEDS: predniSONE 20 MG TAB PO SCH ×2 (08:35→19:34)
[2016-05-27] MEDS: ENOXAPARIN 40 MG/0.4 ML SYR SC SCH (08:36)
--- NOTE | 2016-05-27 09:28 | PCMIDPN ---
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 twice daily. No new recommendations. He looks much better. He understands he will be here over the weekend and I will return on Monday. Dr. Garcia will see him on the weekend. 2. HIV/aids: T-cell count is 21. Patient aware. He is still profoundly depressed about his diagnosis. 3. Oral candidiasis: Continue clotrimazole troches. No symptoms to suggest esophageal disease. 4. Transaminitis: Better today. Bactrim dose reduced to 15 mg from 20. 5. Hyperkalemia: Secondary to anti- aldosterone effect of Bactrim. Subjective: Much better today. Not really coughing. Complaining of constipation. Objective: Bactrim to 25 mg IV q.6 hours day 3 Prednisone 40 mg p.o. twice daily day 3 Afebrile 92% on 6 L by OxyMask Vital Signs Temp Pulse Resp BP Pulse Ox 36.7 C 78 18 112/70 92 05/27/16 08:00 05/27/16 08:00 05/27/16 08:00 05/27/16 08:00 05/27/16 08:00 Laboratory Results 05/27/16 05:40 05/27/16 05:40 05/26/16 05/27/16 05/28/16 05:59 05:59 05:59 Intake Total 4272 1989 Balance 2 1989 Pneumocystis stain positive CMV PCR negative Serum cryptococcal antigen negative Urine histoplasmosis antigen pending - Physical Exam General Appearance: cachetic EENT: thrush (Better) Respiratory: crackles (Now audible bilateral lung bases) Cardiac/Chest: No tachycardia Skin: No rash ICD10 Worksheet Patient Problems: Problems Problem Status Onset HIV (human immunodeficiency virus infection) Acute Hypoxia Acute
--- NOTE | 2016-05-27 09:44 | SOAPPROG ---
SOAP Progress Note Assessment/Plan: Assessment/Plan: * HIV positive * PCP pneumonia -continue bactrim and steroids * Resp failure-improved on supplemental O2 * Anxiety Subjective: Feels better Objective: Vital Signs Temp Pulse Resp BP Pulse Ox 36.7 C 78 18 112/70 92 05/27/16 08:00 05/27/16 08:00 05/27/16 08:00 05/27/16 08:00 05/27/16 08:00 Laboratory Results 05/27/16 05:40 05/27/16 05:40 05/26/16 05/27/16 05/28/16 05:59 05:59 05:59 Intake Total 3287 1989 Balance 7 1989 Physical Exam - Physical Exam General Appearance: alert, no apparent distress EENT: PERRL/EOMI, normal ENT inspection, pharynx normal, TMs normal Neck: non-tender, full range of motion, supple, normal inspection Respiratory: crackles (few), No respiratory distress, No wheezing Cardiac/Chest: normal peripheral pulses, regular rate, rhythm Peripheral Pulses: 2+: carotid (R), carotid (L), femoral (R), femoral (L), dorsalis-pedis (R), dorsalis-pedis (L) Abdomen: normal bowel sounds, non-tender, soft Male Genitalia: deferred Rectal: deferred Skin: normal color, warm/dry Extremities: normal range of motion, non-tender, normal inspection, normal capillary refill Neuro/Psych: no motor/sensory deficits, alert, normal mood/affect, oriented x 3 ICD10 Worksheet Patient Problems: Problems Problem Status Onset HIV (human immunodeficiency virus infection) Acute Hypoxia Acute
--- NOTE | 2016-05-27 15:44 | HOSPPROG ---
Hospitalist Progress Note Assessment/Plan: * HIV/AIDS * per ID * PCP pneumonia * on Bactrim and prednisone * acute hypoxic respiratory failure * continue to monitor * improving oxygen requirement * hyperkalemia * worsening * will add daily Kayexalate - should improve when on oral Bactrim * he is constipated * elevated liver function tests * probably related to Bactrim * thrush patient is high risk due to hyperkalemia Subjective: Feeling better Objective: Vital Signs Temp Pulse Resp BP Pulse Ox 36.7 C 78 18 112/70 92 05/27/16 08:00 05/27/16 08:00 05/27/16 08:00 05/27/16 08:00 05/27/16 08:00 Laboratory Results 05/27/16 05:40 05/27/16 05:40 05/26/16 05/27/16 05/28/16 05:59 05:59 05:59 Intake Total 3287 1989 Balance 7 1989 discussed with Infectious Disease - Physical Exam Constitutional: no apparent distress, appears nourished, not in pain Eyes: anicteric sclera, EOMI Ears, Nose, Mouth, Throat: moist mucous membranes, hearing normal, ears appear normal Cardiovascular: regular rate and rhythym, no murmur, rub, or gallop Respiratory: no respiratory distress, no rales or rhonchi, clear to auscultation Skin: warm Neurologic: AAOx3, sensation intact bilaterally ICD10 Worksheet Patient Problems: Problems Problem Status Onset HIV (human immunodeficiency virus infection) Acute Hypoxia Acute
[2016-05-27] MEDS: SODIUM POLY SULF 15 GM/60 ML BOTTLE PO SCH (17:20)
[2016-05-27] MEDS ORDERED: DIAZEPAM 10 MG TAB PO ONE (21:29)
[2016-05-27] MEDS ORDERED: DIAZEPAM 5 MG TAB PO ONE (22:00)
[2016-05-28] MEDS: TMP IV SCH ×4 (00:25→18:21)
[2016-05-28] MEDS: D5W IV SCH ×4 (00:25→18:21)
[2016-05-28] MEDS: SULFAMETHOX IV SCH ×4 (00:25→18:21)
[2016-05-28] MEDS: CLOTRIMAZOLE 10 MG TROCHE PO SCH ×5 (04:53→21:10)
[2016-05-28 06:15] LABS: ANION GAP 10 mEq/L (8-16); CALCIUM 8.3 mg/dL (8.5-10.4); CARBON DIOXIDE 25 mEq/l (22-31); CHLORIDE 100 mEq/L (97-110); CREATININE 0.9 mg/dL (0.7-1.3); GLOMERULAR FILTRATION RATE > 60; GLUCOSE 124 mg/dL (70-100); POTASSIUM 5.3 mEq/L (3.5-5.2); SODIUM 135 mEq/L (134-144)
[2016-05-28] MEDS: SENNOSIDES/DOCUSATE SODIUM TAB PO SCH ×2 (09:25→21:10)
[2016-05-28] MEDS: ENOXAPARIN 40 MG/0.4 ML SYR SC SCH (09:26)
[2016-05-28] MEDS: MULTIVITAMINS 1 EACH TAB PO SCH (09:26)
[2016-05-28] MEDS: predniSONE 20 MG TAB PO SCH ×2 (09:26→21:10)
[2016-05-28] MEDS: SODIUM POLY SULF 15 GM/60 ML BOTTLE PO SCH ×2 (11:26→14:34)
--- NOTE | 2016-05-28 13:48 | HOSPPROG ---
Hospitalist Progress Note Assessment/Plan: * HIV/AIDS * per ID * PCP pneumonia * on Bactrim and prednisone * acute hypoxic respiratory failure * continue to monitor * improving oxygen requirement * hyperkalemia * due to aldosterone affect of Bactrim * potassium not too bad today - can hold Kayexalate for today since he had such bad diarrhea yesterday * probably re-dose tomorrow * elevated liver function tests * probably related to Bactrim * thrush Subjective: Had diarrhea with Kayexalate yesterday. Breathing is better. No new complaints Objective: Vital Signs Temp Pulse Resp BP Pulse Ox 36.6 C 73 18 99/68 L 95 05/28/16 08:00 05/28/16 08:00 05/28/16 08:00 05/28/16 08:00 05/28/16 08:00 Laboratory Results 05/27/16 05:40 05/28/16 05:20 05/27/16 05/28/16 05/29/16 05:59 05:59 05:59 Intake Total 1989 2094 Output Total 999 Balance 1989 1095 - Physical Exam Constitutional: no apparent distress, appears nourished, not in pain Eyes: anicteric sclera, EOMI Ears, Nose, Mouth, Throat: moist mucous membranes, hearing normal, ears appear normal Cardiovascular: regular rate and rhythym, no murmur, rub, or gallop Respiratory: no respiratory distress, no rales or rhonchi, clear to auscultation Gastrointestinal: normoactive bowel sounds, soft, non-tender abdomen, no palpable masses Neurologic: AAOx3 Psychiatric: interacting appropriately, not anxious, not encephalopathic, thought process linear ICD10 Worksheet Patient Problems: Problems Problem Status Onset HIV (human immunodeficiency virus infection) Acute Hypoxia Acute
--- NOTE | 2016-05-28 13:56 | PCMIDPN ---
Assessment/Plan: Assessment/Plan: 1. PJP pneumonia in patient with AIDS -Currently on Bactrim IV plus Prednisone -Started on 05/24/16. On Day #5 so far -Monitor LFT, creatinine while on therapy. -T- cell: 21. 2. Oral candidiasis: -On oral therapy. symptoms improved. 3. Transaminitis: -monitor. Will repeat. 4. Elevated potassium: - 2/2 to bactrim Meds bactrim 225mg q6- 05/26/16 (therapy initially started on 05/24/16) prednisone 40mg bid- Subjective: Afebrile. Feels better overall. Denies pleuritic cp with deep breathing. denies cough. Less sob overall. facemask at 7L. Denies abd pain. Had three loose stools yeterday after kayexcalate apparently. Denies sorethroat or painful swallowing. Objective: Vital Signs Temp Pulse Resp BP Pulse Ox 36.6 C 73 18 99/68 L 95 05/28/16 08:00 05/28/16 08:00 05/28/16 08:00 05/28/16 08:00 05/28/16 08:00 Laboratory Results 05/27/16 05:40 05/28/16 05:20 05/27/16 05/28/16 05/29/16 05:59 05:59 05:59 Intake Total 1989 2094 Output Total 1000 Balance 1989 1095 - Physical Exam General Appearance: alert, no apparent distress EENT: other (oral thrush improved) Respiratory: coarse breath sounds (mild) Cardiac/Chest: regular rate, rhythm, No systolic murmur Extremities: No swelling Abdomen: normal bowel sounds, non-tender, soft, No distended ICD10 Worksheet Patient Problems: Problems Problem Status Onset HIV (human immunodeficiency virus infection) Acute Hypoxia Acute
[2016-05-28] MEDS ORDERED: diphenhydrAMINE 25 MG CAP PO PRN (14:06)
[2016-05-29] MEDS: TMP IV SCH ×4 (00:07→18:47)
[2016-05-29] MEDS: SULFAMETHOX IV SCH ×4 (00:07→18:47)
[2016-05-29] MEDS: D5W IV SCH ×4 (00:07→18:47)
[2016-05-29 05:28] LABS: ANION GAP 7 mEq/L (8-16); CALCIUM 8.2 mg/dL (8.5-10.4); CARBON DIOXIDE 25 mEq/l (22-31); CHLORIDE 103 mEq/L (97-110); CREATININE 0.9 mg/dL (0.7-1.3); GLOMERULAR FILTRATION RATE > 60; GLUCOSE 129 mg/dL (70-100); POTASSIUM 5.2 mEq/L (3.5-5.2); SODIUM 135 mEq/L (134-144)
[2016-05-29] MEDS: CLOTRIMAZOLE 10 MG TROCHE PO SCH ×4 (05:39→21:16)
--- NOTE | 2016-05-29 09:09 | PCMIDPN ---
Assessment/Plan: Assessment/Plan: 1. PJP pneumonia in patient with AIDS -Currently on Bactrim IV plus Prednisone -Started on 05/24/16. On Day #6 so far - Day #5 today of prednisone Bid...taper to daily from tomorrow x 5day, then ongoing taper thereafter. -Monitor LFT, creatinine while on therapy. -tcell 21 -Discussed overall plan of care with patient. 2. Oral candidiasis: -On oral therapy. symptoms improved. 3. Transaminitis: -monitor. Will repeat. 4. Elevated potassium: - 2/2 to bactrim Meds bactrim 225mg q6- 05/26/16 (therapy initially started on 05/24/16) prednisone 40mg bid-05/25/16 Subjective: Afebrile. Feeling better. on O2 via NC now at 4L. Able to take deep breaths without pain or coughing. not brining up phlegm. Still with sob with minimal exertion. Blister like findings of yesterday on his face, 2 small spots, have totally resolved. Denies rashes. He feels it was the nutmeg he had consumed in the smoothie. Had one loose stool yesterday. denies abd pain. Objective: Vital Signs Temp Pulse Resp BP Pulse Ox 36.6 C 77 15 98/61 L 95 05/29/16 07:29 05/29/16 07:29 05/29/16 07:29 05/29/16 07:29 05/29/16 07:29 Laboratory Results 05/27/16 05:40 05/29/16 04:58 05/28/16 05/29/16 05/30/16 05:59 05:59 05:59 Intake Total 2095 1624 Output Total 1000 Balance 1095 1624 - Physical Exam General Appearance: alert, no apparent distress, other (no blisters on face.) Respiratory: coarse breath sounds Cardiac/Chest: regular rate, rhythm Extremities: No swelling Abdomen: normal bowel sounds, non-tender, soft, No distended Skin: No rash ICD10 Worksheet Patient Problems: Problems Problem Status Onset HIV (human immunodeficiency virus infection) Acute Hypoxia Acute
[2016-05-29] MEDS: predniSONE 20 MG TAB PO SCH ×2 (09:27→20:49)
[2016-05-29] MEDS: SENNOSIDES/DOCUSATE SODIUM TAB PO SCH ×2 (09:28→20:49)
[2016-05-29] MEDS: MULTIVITAMINS 1 EACH TAB PO SCH (09:28)
[2016-05-29] MEDS: SODIUM POLY SULF 15 GM/60 ML BOTTLE PO SCH (10:13)
[2016-05-29] MEDS: ENOXAPARIN 40 MG/0.4 ML SYR SC SCH (10:13)
--- NOTE | 2016-05-29 10:39 | HOSPPROG ---
Hospitalist Progress Note Assessment/Plan: Patient is a 41-year-old male presented to the emergency room with increased breathlessness with associated cough and green sputum production. Today is my 1st encounter with the patient. Chart reviewed. * HIV/AIDS * per ID * will need MAC prophylaxis * PCP pneumonia * on Bactrim and prednisone (BID) * started on 05/24 * will need to have prednisone tapered/ start daily tomorrow and wean down * acute hypoxic respiratory failure * continue to monitor * improving oxygen requirement * on 4 liters today * asked nursing staff to do a room air challenge * hyperkalemia * 2/2 to Bactrim * resolved * elevated liver function tests * probably related to Bactrim * oral candidiasis -oral therapy /clotrimazole * Plan: continue current treatment/ Lev is hopeful to go home without O2, but I think this is unlikely Subjective: Lev is feeling much better today. Objective: Vital Signs Temp Pulse Resp BP Pulse Ox 36.6 C 77 15 98/61 L 95 05/29/16 07:29 05/29/16 07:29 05/29/16 07:29 05/29/16 07:29 05/29/16 07:29 Laboratory Results 05/27/16 05:40 05/29/16 04:58 05/28/16 05/29/16 05/30/16 05:59 05:59 05:59 Intake Total 2095 1624 Output Total 1000 Balance 1095 1624 - Physical Exam Constitutional: no apparent distress, other (thin) Eyes: PERRL Ears, Nose, Mouth, Throat: hearing normal Cardiovascular: regular rate and rhythym Respiratory: no respiratory distress, no rales or rhonchi, clear to auscultation Gastrointestinal: normoactive bowel sounds Skin: warm Musculoskeletal: full muscle strength Neurologic: AAOx3 Psychiatric: interacting appropriately, not anxious ICD10 Worksheet Patient Problems: Problems Problem Status Onset HIV (human immunodeficiency virus infection) Acute Hypoxia Acute
[2016-05-30] MEDS: TMP IV SCH ×2 (00:07→05:14)
[2016-05-30] MEDS: D5W IV SCH ×2 (00:07→05:14)
[2016-05-30] MEDS: SULFAMETHOX IV SCH ×2 (00:07→05:14)
[2016-05-30 05:03] LABS: ADD DIFF? NO; ADD MORPH? NO; ADD SCAN? NO; ATYPICAL LYMPHOCYTE FLAG 10 (0-99); FRAGMENT RBC FLAG 0 (0-99); HEMOGLOBIN 12.7 g/dL (13.7-17.5); LEFT SHIFT FLG 10 (0-99); LIPEMIA HEMOLYSIS FLAG 80 (0-99); MEAN CELL HEMOGLOBIN 30.5 pg (27.9-34.1); MEAN CELL HEMOGLOBIN CONCENTR. 33.4 g/dL (32.4-36.7); MEAN CELL VOLUME 91.1 fL (81.5-99.8); MEAN PLATELET VOLUME 8.5 fL (8.7-11.7); PLATELET CLUMPS FLAG 0 (0-99); PLATELET COUNT 639 10^3/uL (150-400); RED BLOOD CELL COUNT 4.17 10^6/uL (4.40-6.38); RED CELL DISTRIBUTION WIDTH 13.9 % (11.5-15.2)
[2016-05-30] MEDS: CLOTRIMAZOLE 10 MG TROCHE PO SCH ×3 (05:22→08:47)
[2016-05-30 05:25] LABS: ALANINE AMINOTRANSFERASE 57 IU/L (21-72); ALBUMIN 2.5 g/dL (3.5-5.0); ALKALINE PHOSPHATASE 70 IU/L (38-126); ANION GAP 9 mEq/L (8-16); ASPARTATE AMINOTRANSFERASE 24 IU/L (17-59); BILIRUBIN,TOTAL 0.3 mg/dL (0.1-1.4); BILIRUBIN-CONJUGATED 0.3 mg/dL (0.0-0.5); CALCIUM 8.4 mg/dL (8.5-10.4); CARBON DIOXIDE 24 mEq/l (22-31); CHLORIDE 102 mEq/L (97-110); CREATININE 0.9 mg/dL (0.7-1.3); GLOMERULAR FILTRATION RATE > 60; GLUCOSE 120 mg/dL (70-100); POTASSIUM 5.4 mEq/L (3.5-5.2); SODIUM 135 mEq/L (134-144); TOTAL PROTEIN 6.2 g/dL (6.3-8.2)
[2016-05-30] MEDS: ENOXAPARIN 40 MG/0.4 ML SYR SC SCH (07:51)
--- NOTE | 2016-05-30 08:44 | PCMIDPN ---
Assessment/Plan: 1.Pneumocystis pneumonia in patient with profound immunosuppression from AIDS: 02saturation dropped to mid-70's walking. REALLY NEEDS HOME 02. I will try and talk to social work. Pt agreeable to stay until we can try and sort this out. Will change Bactrim to 2DS tabs PO q 8 hours and Pred 40 daily with taper. I will call these scripts into our pharmacy ([facility] ) and our Александр Tai [place] will pay. Pt aware. He will see us in clinic next Monday at 1:30 pm. 2. HIV/aids: T-cell count is 21. Start ART in two weeks. 3. Oral candidiasis: Continue clotrimazole troches. I will also call these in to our pharmacy. 4. Transaminitis: REsolved. 5. Hyperkalemia: Secondary to anti- aldosterone effect of Bactrim. Will cont Kayexalate as outpt. ( I will call this in as well) Scripts I called in: Bactrim 2DS tabs q8 16 days no refills Prednisone taper Clotrimazole luke 5x day x 10 more days Kayexalate 15gm daily x 16 days Subjective: Pt adamant about going home. NEEDS HOME02. (see plan) Says " I feel much better. " No rash. Objective: Bactrim 225 q 6 day6 Pred 40 BID day 6 AF 90% on 1 l Vital Signs Temp Pulse Resp BP Pulse Ox 36.6 C 90 16 120/68 90 L 05/29/16 21:16 05/29/16 21:16 05/29/16 21:16 05/29/16 21:16 05/29/16 21:16 Microbiology 05/24/16 13:40 Blood Culture - Final Blood Laboratory Results 05/30/16 04:42 05/30/16 04:42 05/29/16 05/30/16 05/31/16 05:59 05:59 05:59 Intake Total 3124 528 1028 Balance 3124 528 1028 - Physical Exam General Appearance: alert, no apparent distress EENT: pharynx normal, No thrush Respiratory: lungs clear Skin: No rash ICD10 Worksheet Patient Problems: Problems Problem Status Onset HIV (human immunodeficiency virus infection) Acute Hypoxia Acute
[2016-05-30] MEDS: MULTIVITAMINS 1 EACH TAB PO SCH (08:46)
[2016-05-30] MEDS: predniSONE 20 MG TAB PO SCH (08:47)
[2016-05-30] MEDS: SENNOSIDES/DOCUSATE SODIUM TAB PO SCH (08:47)
[2016-05-30 08:57] VITALS: BP 130/85; PULSE 67; RESP 15; TEMP 97.8
--- NOTE | 2016-05-30 09:15 | HOSPPROG ---
Hospitalist Progress Note Assessment/Plan: Patient is a 41-year-old male presented to the emergency room with increased breathlessness with associated cough and green sputum production. * HIV/AIDS * per ID * ART in 2 weeks * PCP pneumonia * on Bactrim and prednisone (BID) * started on 05/24 * script called in * acute hypoxic respiratory failure * continue to monitor * improving oxygen requirement * on 2 liters * arranging home O2 * with activity his O2 levels drop in the 70's but improve with rest * hyperkalemia * / to Bactrim * Dr Mcclure called in Kayexalate and will follow * will give a dose before dc * elevated liver function tests * probably related to Bactrim * oral candidiasis * clotrimazole/called in * Plan: dc home after O2 is set up Subjective: lev has no complaints. Objective: Vital Signs Temp Pulse Resp BP Pulse Ox 36.6 C 67 15 130/85 H 96 05/30/16 08:00 05/30/16 08:00 05/30/16 08:00 05/30/16 08:00 05/30/16 08:00 Microbiology 05/24/16 13:40 Blood Culture - Final Blood Laboratory Results 05/30/16 04:42 05/30/16 04:42 05/29/16 05/30/16 05/31/16 05:59 05:59 05:59 Intake Total 3124 528 1028 Balance 3124 528 1028 - Physical Exam Constitutional: no apparent distress, other (thin) Eyes: PERRL Ears, Nose, Mouth, Throat: hearing normal Cardiovascular: regular rate and rhythym Respiratory: no respiratory distress Gastrointestinal: normoactive bowel sounds Skin: warm Musculoskeletal: full muscle strength Neurologic: AAOx3 Psychiatric: interacting appropriately, not anxious ICD10 Worksheet Patient Problems: Problems Problem Status Onset HIV (human immunodeficiency virus infection) Acute Hypoxia Acute
[2016-05-30 09:19] VITALS: O2SAT 81
[2016-05-30] MEDS: SODIUM POLY SULF 15 GM/60 ML BOTTLE PO SCH (09:54)
--- NOTE | 2016-05-30 12:55 | GDS ---
[f rep st] DISCHARGE SUMMARY DISCHARGE DIAGNOSES: 1. Human immunodeficiency virus/acquired immune deficiency syndrome. 2. Pneumocystis carinii pneumonia. 3. Acute hypoxemic respiratory failure. 4. Hyperkalemia. 5. Elevated liver function tests. 6. Oral candidiasis. CONSULTATIONS: During this stay: 1. Dr. Yarely Mcclure. 2. Dr. Jori Becerra. Briefly, the patient is a 41-year-old male with a past medical history of HIV positive. He presented to the emergency room with complaints of increasing breathlessness, worsened by any form of exertion. He noted that he had a cough productive of green sputum. He was seen and evaluated by Dr. Becerra and by Dr. Mcclure. It was noted that he had PCP pneumonia and was started on Bactrim and steroids. He will be discharged home today with oxygen and Bactrim and steroids per Infectious Disease team. HOSPITAL COURSE PER PROBLEM: 1. HIV/AIDS. He will ART in 2 weeks. Further followup with Dr. Mcclure. 2. PCP pneumonia, on Bactrim and prednisone. 3. Acute hypoxemic respiratory failure. Oxygen has been arranged for him at home. He will need this until further evaluation with Dr. Mcclure. 4. Hyperkalemia, secondary to the Bactrim. He got a dose of Kayexalate prior to discharge. He also will get a prescription for this. 5. Elevated liver function tests. Most likely secondary to Bactrim. 6. Oral candidiasis. Clotrimazole. CONDITION AT DISCHARGE: Stable. Blood pressure is 130/85, O2 sats on 2 L are 96%, respiratory rate is 15, pulse is 67, temperature is 36.6 Celsius. MEDICATIONS AT DISCHARGE: Please see the EMR. Dr. Mcclure has called in multiple medications. DISCHARGE INSTRUCTIONS: 1. Oxygen and to get a pulse oximeter so he can monitor his oxygen levels. 2. To take medications as prescribed by Dr. Mcclure. 3. He has an appointment at the clinic on next Monday at 1:30. 4. If he develops fever, chills, chest pain, or worsening shortness of breath, return to the ER. Greater than 30 minutes discharging and coordinating care. /[id number]/MODL MTDD
== END 2016-05-30 11:32 | disposition home or self-care (01) | DRG 974 ==
LOC: UNDOADMIN 13:39 → F2N 18:28 → F3N 05-28 11:34
PROVIDERS: ADMIT Internal Medicine; ATTEND Internal Medicine
DX: B20 Human immunodeficiency virus [HIV] disease (principal); B59 Pneumocystosis; J96.01 Acute respiratory failure with hypoxia; B37.0 Candidal stomatitis; Z88.0 Allergy status to penicillin; Z87.891 Personal history of nicotine dependence; E87.5 Hyperkalemia
CPT/HCPCS: 97161-GP; J1650; J1956; Q9967